=== PATIENT | female | born 1940 | race Two or more races ===

== ENCOUNTER 2021-08-09 14:18 | Outpatient (REF) | payer OTHER, SELFPAY ==
[2021-08-09 16:15] LABS: Vitamin B12 235 pg/mL (200-900)
== END 2021-08-09 14:19 | disposition home or self-care (01) ==
LOC: HO.LAB 14:18
PROVIDERS: PCP Internal Medicine; Visit Provider Psychiatry & Neurology Neurology
DX: G30.9 Alzheimer's disease, unspecified (principal)
CPT/HCPCS: 36415; 82607